=== PATIENT | female | born 1990 | race Caucasian/White ===

== ENCOUNTER 2016-08-12 16:52 | Emergency (ER) | payer OTHER ==
[~2016-08-12] VITALS: Ht 175.3 cm; Wt 83.9 kg
[~2016-08-12 16:52] MED LIST: ACET50TA PO; AUGMENTIN; BUTA50TA PO; COLA100C PO; DIBU1OIN TOP; IBUP-1114 PO; PRENTAB55 PO; VICO5TAB
[2016-08-12] MEDS ORDERED: NS 1,000 ML IV ONE (17:30)
[2016-08-12 18:16] LABS: MEAN CORPUSCULAR HEMOGLOBIN 29.5 pg (27.0-33.0); MEAN CORPUSCULAR HGB CONC 33.2 g/dl (32.0-36.5); MEAN CORPUSCULAR VOLUME 88.7 fl (80.0-96.0); RED CELL DISTRIBUTION WIDTH 12.7 % (11.5-14.5); WHITE BLOOD COUNT 11.2 K/mm3 (4.0-10.0)
[2016-08-12 18:28] LABS: CONTROL LINE HCG INT CTR LINE PRESENT
[2016-08-12 18:49] LABS: BASOPHILS 1 % (0-4); EOSINOPHILS 4 % (0-5)
--- NOTE | 2016-08-12 20:01 | REP ---
Clinical: Pelvic pain and bleeding. IUD placement. Technique: Transabdominal pelvic ultrasound with color Doppler evaluation of the ovaries. Findings: Bladder is unremarkable and measures approximately 5.8 x 4.2 x 5.0 cm. Normal anteverted uterus measures 8.6 x 3.8 x 5.8 cm . The endometrial complex measures 6.6 mm thickness. No discrete uterine or endometrial abnormalities are appreciated. IUD in satisfactory central position. Bilateral ovaries are normal in appearance and vascularity without evidence for torsion. Right ovary measures 3.0 x 2.8 x 2.1 cm ; R I = 0.53 . Left ovary measures 3.8 x 2.0 x 2.6 cm ; R I = 0.49 . No pelvic fluid or adnexal mass lesion. Impression: 1. Normal pelvic ultrasound. 2. IUD in satisfactory position. 3. Normal ovaries without evidence for torsion. Signed by Wilman Lepe MD 08/12/2016 07:53 P
[2016-08-12] MEDS ORDERED: IBUP80TA PO (20:40)
[2016-08-12 21:04] VITALS: BP 114/66
== END 2016-08-12 21:08 | disposition home or self-care (01) ==
LOC: M ED 17:38
DX: N93.8 Other specified abnormal uterine and vaginal bleeding (principal); F41.9 Anxiety disorder, unspecified; F33.9 Major depressive disorder, recurrent, unspecified; Z97.5 Presence of (intrauterine) contraceptive device

== ENCOUNTER 2017-04-15 19:46 | Emergency (ER) | payer OTHER ==
[~2017-04-15] VITALS: Ht 175.3 cm; Wt 84.1 kg
[~2017-04-15 19:46] MED LIST changes: -COLA100C PO; +COLA100C5 PO; +IBUP80TA PO
[2017-04-15 19:47] VITALS: BP 125/70
[2017-04-15] MEDS ORDERED: TYLE500T78 PO (19:57)
[2017-04-15] MEDS ORDERED: PRENTAB29 PO (19:57)
[2017-04-15] MEDS ORDERED: TETRACAINE 0.5% OPHTH SOLN 4ML OU ONE (22:15)
== END 2017-04-15 23:03 | disposition home or self-care (01) ==
LOC: M ED 19:46
DX: O99.89 Other specified diseases and conditions complicating pregnancy, childbirth and the puerperium (principal); H53.9 Unspecified visual disturbance; Z98.890 Other specified postprocedural states; Z87.891 Personal history of nicotine dependence; Z3A.09 9 weeks gestation of pregnancy

== ENCOUNTER 2017-04-19 09:39 | Emergency (ER) | payer OTHER ==
[~2017-04-19] VITALS: Ht 175.3 cm; Wt 81.8 kg
[~2017-04-19 09:39] MED LIST changes: +PRENTAB29 PO; +TYLE500T78 PO
[2017-04-19] MEDS ORDERED: METOCLOPRAMIDE INJ 10MG/2ML VIAL (J2765) IV ONE (10:15)
[2017-04-19] MEDS ORDERED: NS 1,000 ML IV ONE (10:15)
[2017-04-19 10:41] LABS: BASO % 0.3 % (0.0-1.0); EOS % 0.3 % (0.0-3.0); IMMATURE GRANULOCYTE % 0.3 % (0-0); LYMPH # 0.7 10^3/uL (1.5-6.5); LYMPH % 5.8 % (24.0-44.0); MEAN CORPUSCULAR HGB CONC 34.2 g/dl (32.0-36.5); MEAN CORPUSCULAR VOLUME 87.6 fl (80.0-96.0); MONO # 0.4 10^3/uL (0.0-0.8); MONO % 2.9 % (0.0-5.0); NEUTROPHILS % 90.4 % (36.0-66.0); PLATELET COUNT, AUTOMATED 245 10^3/uL (150-450); RED CELL DISTRIBUTION WIDTH 11.7 % (11.5-14.5); WHITE BLOOD COUNT 12.2 10^3/uL (4.0-10.0)
[2017-04-19 11:00] LABS: PLT CLUMPS? POS FLAG; POS COUNT POS FLAG
[2017-04-19 12:09] LABS: ALBUMIN 3.4 GM/DL (3.2-5.2); ALBUMIN/GLOBULIN RATIO 0.81 (1.00-1.93); ALKALINE PHOSPHATASE 118 U/L (45-117); ALT/SGPT 100 U/L (12-78); AMYLASE 68 U/L (25-115); ANION GAP 11 MEQ/L (8-16); AST/SGOT 36 U/L (7-37); BLOOD UREA NITROGEN 9 MG/DL (7-18); CALCIUM LEVEL 8.9 MG/DL (8.5-10.1); CARBON DIOXIDE LEVEL 24 MEQ/L (21-32); CHLORIDE LEVEL 104 MEQ/L (98-107); CREATININE FOR GFR 0.63 MG/DL (0.55-1.02); GLOMERULAR FILTRATION RATE > 60.0 (>60); GLUCOSE, FASTING 108 MG/DL (70-105); HCG, SERUM QUANTITATIVE 108162 MIU/ML; POTASSIUM SERUM 4.1 MEQ/L (3.5-5.1); SODIUM LEVEL 139 MEQ/L (136-145); TOTAL PROTEIN 7.6 GM/DL (6.4-8.2)
[2017-04-19] MEDS ORDERED: REGL10TA6 PO (12:25)
[2017-04-19] MEDS ORDERED: MACR100C43 PO (12:25)
[2017-04-19 12:34] VITALS: BP 104/62
== END 2017-04-19 12:36 | disposition home or self-care (01) ==
LOC: EDBD 09:39 → M ED 09:39
DX: O26.891 Other specified pregnancy related conditions, first trimester (principal); O23.41 Unspecified infection of urinary tract in pregnancy, first trimester; O99.341 Other mental disorders complicating pregnancy, first trimester; F33.9 Major depressive disorder, recurrent, unspecified; Z3A.09 9 weeks gestation of pregnancy
CPT/HCPCS: 36415; 80053; 81001; 82150; 83690; 84702; 85025; 87088; 87186; 96361; 96374; 99284; J2765

== ENCOUNTER 2017-08-07 16:29 | Outpatient (CLI) | payer OTHER | END 2017-08-07 18:55 | disposition home or self-care (01) | LOC: M LDO 16:29 | DX: O47.02 False labor before 37 completed weeks of gestation, second trimester (principal); O30.042 Twin pregnancy, dichorionic/diamniotic, second trimester; Z3A.25 25 weeks gestation of pregnancy; Z79.899 Other long term (current) drug therapy | CPT/HCPCS: 59025 ==

== ENCOUNTER 2017-09-16 17:11 | Outpatient (CLI) | payer OTHER | END 2017-09-16 19:40 | disposition home or self-care (01) | LOC: M LDO 17:11 | DX: O30.043 Twin pregnancy, dichorionic/diamniotic, third trimester (principal); O36.8132 Decreased fetal movements, third trimester, fetus 2; Z3A.33 33 weeks gestation of pregnancy | CPT/HCPCS: 59025 ==

== ENCOUNTER 2017-10-09 14:14 | Inpatient (IN) | payer OTHER ==
[2017-10-09] MEDS ORDERED: LR 1,000 ML IV (14:57)
[2017-10-09] MEDS: LACTATED RINGER'S 1000 ML IV (15:07)
[2017-10-09] MEDS: BETAMETHASONE SOLUSPAN 6MG/ML INJ 5ML (J0702) IM (15:07)
[2017-10-09 15:11] LABS: HEMATOCRIT 36.4 % (36.0-47.0); HEMOGLOBIN 12.1 g/dl (12.0-15.5); MEAN CORPUSCULAR HEMOGLOBIN 30.4 pg (27.0-33.0); MEAN CORPUSCULAR HGB CONC 33.2 g/dl (32.0-36.5); MEAN CORPUSCULAR VOLUME 91.5 fl (80.0-96.0); PLATELET COUNT, AUTOMATED 234 10^3/uL (150-450); RED BLOOD COUNT 3.98 10^6/uL (4.00-5.40); RED CELL DISTRIBUTION WIDTH 14.1 % (11.5-14.5)
[2017-10-09] MEDS ORDERED: BICITRA 30ML SOLN UDC As Ordered (16:12)
[2017-10-09] MEDS ORDERED: ceFAZolin 2 GM/D5W 50 ML IV BAG (J0690 PER 500MG) As Ordered (16:16)
[2017-10-09] MEDS ORDERED: MORPHINE PRES-FREE INJ 10 MG/10 ML VIAL (J2274) As Ordered (16:19)
[2017-10-09] MEDS: BICITRA 30ML SOLN UDC PO (16:26)
[2017-10-09] MEDS ORDERED: NALOXONE INJ 0.4 MG/1 ML VIAL (J2310) IV ×2 (16:54)
[2017-10-09] MEDS ORDERED: NALBUPHINE HCL 10 MG/ML AMP (J2300) IV ×2 (16:54→18:45)
[2017-10-09] MEDS ORDERED: ONDANSETRON 4MG/2ML VIAL (J2405) IV ×2 (16:54→18:45)
[2017-10-09] MEDS ORDERED: METOCLOPRAMIDE INJ 10MG/2ML VIAL (J2765) IV (16:54)
[2017-10-09] MEDS ORDERED: ONDANSETRON 4MG/2ML VIAL (J2405) As Ordered ×2 (17:13)
[2017-10-09] MEDS ORDERED: PHENYLephrine HCL 500 MCG/5 ML (100MCG/ML) SYRINGE (J2370) As Ordered (17:13)
[2017-10-09] MEDS ORDERED: ePHEDrine SULFATE 25 MG/5 ML(5MG/ML) SYRINGE As Ordered (17:13)
[2017-10-09] MEDS ORDERED: OXYTOCIN INJ 10 UNITS/ML VIAL (J2590) As Ordered ×4 (17:13→17:40)
[2017-10-09] MEDS ORDERED: METOCLOPRAMIDE INJ 10MG/2ML VIAL (J2765) As Ordered (17:15)
[2017-10-09] MEDS ORDERED: miSOPROStol 200 MCG TAB (S0191) As Ordered (17:25)
[2017-10-09] MEDS ORDERED: MIDAZOLAM INJ 2 MG/2 ML VIAL (J2250) As Ordered (17:26)
[2017-10-09 17:28] LABS: APPEARANCE, URINE HAZY (CLEAR); BACTERIA, URINE AUTO 2+ (NEGATIVE); BILIRUBIN, URINE AUTO NEGATIVE (NEGATIVE); BLOOD, URINE BLOOD 2+ (NEGATIVE); COLOR, URINE AMBER (YELLOW); GLUCOSE, URINE (UA) AUTO NEGATIVE (NEGATIVE); KETONE, URINE AUTO TRACE mg/dL (NEGATIVE); LEUKOCYTE ESTERASE, URINE AUTO 2+ (NEGATIVE); MUCUS, URINE SMALL (NEGATIVE); NITRITE, URINE AUTO NEGATIVE (NEGATIVE); PROTEIN, URINE AUTO 1+ mg/dL (NEGATIVE); RBC, URINE AUTO 101 /HPF (0-3); SPECIFIC GRAVITY URINE AUTO 1.019 (1.002-1.035); SQUAMOUS EPITHELIAL CELL UR AU 1 /HPF (0-6); UROBILINOGEN, URINE AUTO 0.2 mg/dL (0.0-2.0); WBC, URINE AUTO 52 /HPF (0-3)
[2017-10-09] MEDS ORDERED: KETAMINE HCL 200 MG/20 ML VIAL As Ordered (17:28)
[2017-10-09 17:56] LABS: CORD GAS ABE V -2.7; CORD GAS O2 SAT V 62.3 %; CORD GAS PCO2 V 43.3 mmHg; CORD GAS PH V 7.344 UNITS; CORD GAS PO2 V 24.9 mmHg; CORD GAS SBC V 21.2 MEQ/L; CORD GAS TCO2 V 24.4 MEQ/L
[2017-10-09 17:58] LABS: CORD GAS ABE A 0.1; CORD GAS HCO3 A 25.4 MEQ/L; CORD GAS O2 SAT A 59.8 %; CORD GAS PCO2 A 43.5 mmHg; CORD GAS PH A 7.384 UNITS; CORD GAS PO2 A 23.9 mmHg; CORD GAS SBC A 23.5 MEQ/L; CORD GAS TCO2 A 26.7 MEQ/L
[2017-10-09] MEDS ORDERED: MEPERIDINE 50 MG/ML 1ML VIAL (J2175) As Ordered (17:59)
[2017-10-09 18:00] LABS: CORD GAS ABE V -1.8; CORD GAS HCO3 V 21.6 MEQ/L; CORD GAS O2 SAT V 85.4 %; CORD GAS PCO2 V 33.7 mmHg; CORD GAS PH V 7.425 UNITS; CORD GAS PO2 V 37.4 mmHg; CORD GAS SBC V 22.6 MEQ/L; CORD GAS TCO2 V 22.7 MEQ/L
[2017-10-09] MEDS: KETOROLAC 30 MG/ML VIAL (J1885) IV (18:00)
[2017-10-09] MEDS: LR 1,000 ML IV ×2 (18:36→19:05)
[2017-10-09] MEDS ORDERED: fentaNYL 100 MCG/2 ML INJECTION (J3010) IV (18:45)
[2017-10-09] MEDS ORDERED: MEASLES,MUMPS,RUBELLA VACCINE INJ (MMR-II) (90707) SC (18:45)
[2017-10-09] MEDS ORDERED: RHOGAM 300 MCG (1500 IU) INJ (J2790) IM (18:45)
[2017-10-09] MEDS ORDERED: PERCOCET 5MG/325MG TAB PO (18:45)
[2017-10-09] MEDS: miSOPROStol 200 MCG TAB (S0191) PR (19:00)
[2017-10-09] MEDS: AMPICILLIN SOD/SULBACTAM SOD 3 GM in D5W MINI-BAG PLUS 100 ML IV (21:00)
[2017-10-10] MEDS: DOCUSATE SODIUM 100 MG CAP PO ×3 (01:29→21:17)
[2017-10-10] MEDS: KETOROLAC 30 MG/ML VIAL (J1885) IV ×3 (01:30→13:04)
[2017-10-10] MEDS: AMPICILLIN SOD/SULBACTAM SOD 3 GM in D5W MINI-BAG PLUS 100 ML IV ×3 (01:31→13:36)
[2017-10-10] MEDS: ACETAMINOPHEN 500 MG TAB PO (02:00)
[2017-10-10] MEDS: LR 1,000 ML IV ×3 (02:36→18:36)
[2017-10-10] MEDS: PERCOCET 5MG/325MG TAB PO ×3 (05:45→23:58)
[2017-10-10 07:48] LABS: MEAN CORPUSCULAR HEMOGLOBIN 31.2 pg (27.0-33.0); MEAN CORPUSCULAR HGB CONC 33.6 g/dl (32.0-36.5); MEAN CORPUSCULAR VOLUME 92.9 fl (80.0-96.0); PLATELET COUNT, AUTOMATED 182 10^3/uL (150-450); RED BLOOD COUNT 2.69 10^6/uL (4.00-5.40); RED CELL DISTRIBUTION WIDTH 14.2 % (11.5-14.5); WHITE BLOOD COUNT 18.3 10^3/uL (4.0-10.0)
[2017-10-10 07:53] LABS: HEMOGLOBIN 8.4 g/dl (12.0-15.5)
[2017-10-10] MEDS: PRENATAL VITAMINS CHEWABLE TABLET PO (08:24)
[2017-10-10] MEDS: AMPICILLIN SOD 2 GM in D5W MINI-BAG PLUS 100 ML IV (21:16)
[2017-10-10] MEDS: IBUPROFEN 800 MG TAB PO (21:17)
[2017-10-10] MEDS: GENTAMICIN 80 MG in APPROPRIATE DILUENT 1 EA IV (22:04)
[2017-10-10] MEDS: CLINDAMYCIN 900 MG in APPROPRIATE DILUENT 1 EA IV (22:45)
[2017-10-11] MEDS: AMPICILLIN SOD 2 GM in D5W MINI-BAG PLUS 100 ML IV ×3 (02:17→15:18)
[2017-10-11] MEDS: IBUPROFEN 800 MG TAB PO ×3 (04:46→20:30)
[2017-10-11] MEDS: GENTAMICIN 80 MG in APPROPRIATE DILUENT 1 EA IV ×3 (04:46→21:37)
[2017-10-11] MEDS: CLINDAMYCIN 900 MG in APPROPRIATE DILUENT 1 EA IV ×2 (05:25→13:57)
[2017-10-11] MEDS: DOCUSATE SODIUM 100 MG CAP PO ×2 (07:59→20:29)
[2017-10-11] MEDS: PRENATAL VITAMINS CHEWABLE TABLET PO (07:59)
[2017-10-11] MEDS: PERCOCET 5MG/325MG TAB PO ×2 (09:47→20:30)
[2017-10-11] MEDS: ACETAMINOPHEN 500 MG TAB PO (18:34)
[2017-10-12] MEDS: ERTAPENEM SODIUM 1 GM in NS MINI-BAG PLUS 50 ML IV ×2 (00:02→23:53)
[2017-10-12] MEDS: IBUPROFEN 800 MG TAB PO ×3 (05:34→21:19)
[2017-10-12] MEDS: PRENATAL VITAMINS CHEWABLE TABLET PO (07:43)
[2017-10-12] MEDS: DOCUSATE SODIUM 100 MG CAP PO ×2 (07:43→21:19)
[2017-10-12] MEDS: PERCOCET 5MG/325MG TAB PO ×3 (12:59→23:54)
[2017-10-13] MEDS: IBUPROFEN 800 MG TAB PO ×3 (04:56→21:13)
[2017-10-13 08:26] LABS: HEMATOCRIT 24.8 % (36.0-47.0); MEAN CORPUSCULAR HEMOGLOBIN 30.9 pg (27.0-33.0); MEAN CORPUSCULAR HGB CONC 32.3 g/dl (32.0-36.5); MEAN CORPUSCULAR VOLUME 95.8 fl (80.0-96.0); PLATELET COUNT, AUTOMATED 228 10^3/uL (150-450); RED BLOOD COUNT 2.59 10^6/uL (4.00-5.40); RED CELL DISTRIBUTION WIDTH 14.7 % (11.5-14.5); WHITE BLOOD COUNT 9.8 10^3/uL (4.0-10.0)
[2017-10-13] MEDS: PERCOCET 5MG/325MG TAB PO ×2 (09:38→13:08)
[2017-10-13] MEDS: DOCUSATE SODIUM 100 MG CAP PO ×2 (09:39→21:13)
[2017-10-13] MEDS: PRENATAL VITAMINS CHEWABLE TABLET PO (09:39)
[2017-10-14] MEDS: PERCOCET 5MG/325MG TAB PO ×2 (00:47→05:15)
[2017-10-14] MEDS: IBUPROFEN 800 MG TAB PO (04:43)
[2017-10-14] MEDS: PRENATAL VITAMINS CHEWABLE TABLET PO (08:29)
[2017-10-14] MEDS: DOCUSATE SODIUM 100 MG CAP PO (08:30)
== END 2017-10-14 11:55 | disposition home or self-care (01) | DRG 765 ==
LOC: M LDO 14:14 → M PED 10-12 15:50 → M LDI 16:08 → M OBS 20:14
PROVIDERS: Obstetrics & Gynecology
PROC: 10D00Z1 Extraction of Products of Conception, Low, Open Approach (ICD-10-PCS; principal; 2017-10-09 16:36)
DX: O60.03 Preterm labor without delivery, third trimester (principal); O30.043 Twin pregnancy, dichorionic/diamniotic, third trimester; O23.42 Unspecified infection of urinary tract in pregnancy, second trimester; Z3A.34 34 weeks gestation of pregnancy; B96.20 Unspecified Escherichia coli [E. coli] as the cause of diseases classified elsewhere; O32.2XX1 Maternal care for transverse and oblique lie, fetus 1; O32.1XX2 Maternal care for breech presentation, fetus 2; O24.420 Gestational diabetes mellitus in childbirth, diet controlled; Z37.2 Twins, both liveborn

== ENCOUNTER 2020-12-24 10:26 | Emergency (ER) | payer OTHER, SELFPAY ==
[~2020-12-24] VITALS: Ht 177.8 cm; Wt 104.7 kg
[~2020-12-24 10:26] MED LIST changes: -ACET50TA PO; +MACR100C43 PO; +MAPA500T2 PO; +MOTR200T44 PO; +OXYC1TAB23 PO; +PRENTAB9 PO; +REGL10TA6 PO; +ZOFR4SOL PO
[2020-12-24] MEDS ORDERED: PRED20TA (10:38)
[2020-12-24] MEDS ORDERED: LIDO1PAD (10:38)
[2020-12-24 13:43] VITALS: BP 124/76
== END 2020-12-24 13:58 | disposition home or self-care (01) ==
LOC: M ED 10:26
DX: M51.37 Other intervertebral disc degeneration, lumbosacral region (principal); M54.40 Lumbago with sciatica, unspecified side; F33.9 Major depressive disorder, recurrent, unspecified; F41.9 Anxiety disorder, unspecified

== ENCOUNTER 2022-04-22 10:36 | Emergency (ER) | payer OTHER ==
[~2022-04-22] VITALS: Ht 175.3 cm; Wt 79.1 kg
[~2022-04-22 10:36] MED LIST changes: +LIDO1PAD; +PRED20TA
[2022-04-22] MEDS ORDERED: AMOX875T2 PO (11:12)
[2022-04-22 20:44] VITALS: BP 121/69
== END 2022-04-22 20:46 | disposition home or self-care (01) ==
LOC: M ED 10:36
DX: M94.0 Chondrocostal junction syndrome [Tietze] (principal); N64.4 Mastodynia

== ENCOUNTER → 2022-05-04 | Outpatient (CLI) | payer OTHER ==
[~2022-05-04] MED LIST changes: +AMOX875T2 PO
== END ==
LOC: M WHC 10:39
PROVIDERS: ATTEND Family Medicine
DX: N61.0 Mastitis without abscess (principal); Z98.82 Breast implant status
CPT/HCPCS: 77066; G0279

== ENCOUNTER → 2022-08-25 | Outpatient (CLI) | payer OTHER ==
[~2022-08-25] MED LIST changes: +PROHANCE 279.3MG/ML 15ML VIAL As Ordered ONE; +PROHANCE 279.3MG/ML 5ML VIAL As Ordered ONE
== END ==
LOC: M RAD 14:20
PROVIDERS: ATTEND Surgery
DX: R07.89 Other chest pain (principal); Z98.82 Breast implant status; Z91.89 Other specified personal risk factors, not elsewhere classified; Z80.3 Family history of malignant neoplasm of breast
CPT/HCPCS: A9576; C8908

== ENCOUNTER 2022-10-29 08:39 | Emergency (ER) | payer OTHER ==
[~2022-10-29] VITALS: Ht 175.3 cm; Wt 81.8 kg
[~2022-10-29 08:39] MED LIST changes: -PROHANCE 279.3MG/ML 15ML VIAL As Ordered ONE; -PROHANCE 279.3MG/ML 5ML VIAL As Ordered ONE
[2022-10-29] MEDS ORDERED: FAMOTIDINE 20MG/2ML VIAL IVP ONE (09:10)
[2022-10-29] MEDS ORDERED: NS 1,000 ML IV ONE (09:10)
[2022-10-29] MEDS ORDERED: methylPREDNISolone 125MG 2ML VIAL IV ONE (09:10)
[2022-10-29] MEDS ORDERED: CETIRIZINE (ZyrTEC) 10 MG TAB PO ONE (09:15)
[2022-10-29] MEDS ORDERED: PEPC1TAB5 PO ×2 (11:31→11:42)
[2022-10-29] MEDS ORDERED: PRED10TA2 PO ×2 (11:36→11:42)
[2022-10-29] MEDS ORDERED: BENA25CA4 PO ×2 (11:39→11:42)
[2022-10-29 11:45] VITALS: BP 106/54; TEMP 99.2; O2SAT 97
== END 2022-10-29 12:01 | disposition home or self-care (01) ==
LOC: M ED 08:39 → EDBD 08:39 → M ED 12:01
DX: L50.0 Allergic urticaria (principal); G43.909 Migraine, unspecified, not intractable, without status migrainosus; Z79.899 Other long term (current) drug therapy; F17.200 Nicotine dependence, unspecified, uncomplicated
CPT/HCPCS: 93005; 96374; 96375; 99284; J2930; S0028

== ENCOUNTER → 2024-02-06 | Outpatient (CLI) | payer OTHER ==
[~2024-02-06] MED LIST changes: +BENA25CA4 PO; +PEPC1TAB5 PO; +PRED10TA2 PO
== END ==
LOC: M RAD 15:04
PROVIDERS: ATTEND Orthopaedic Surgery
DX: M25.562 Pain in left knee (principal)

== ENCOUNTER → 2024-10-02 | Outpatient (CLI) | payer OTHER | LOC: M PLAIMG 12:23 | PROVIDERS: ATTEND Orthopaedic Surgery | DX: M25.562 Pain in left knee (principal); M67.52 Plica syndrome, left knee ==

== ENCOUNTER → 2025-01-24 | Outpatient (REF) | LOC: M EMP 08:58 | PROVIDERS: ATTEND Family Medicine | DX: Z11.52 Encounter for screening for COVID-19 (principal) ==